=== PATIENT | female | born 1995 | race Caucasian/White ===

== ENCOUNTER 2018-03-26 23:43 | Emergency (ER) | payer MEDICAID ==
[2018-03-27] MEDS: HYDROCODONE/APAP (10/325) TAB PO (00:31)
[2018-03-27] MEDS: ONDANSETRON (ODT) 4 MG TAB ODT (00:31)
[2018-03-27] MEDS: DIPHTH/TET/ACEL PERTUSS (ADULT) 0.5 ML VIAL IM* (00:32)
[2018-03-27] MEDS: LIDOCAINE 1%/EPI 30 ML INJ INJ (01:15)
== END 2018-03-27 02:40 | disposition home or self-care (01) ==
LOC: E/R 23:43
DX: S61.411A Laceration without foreign body of right hand, initial encounter (principal); S61.511A Laceration without foreign body of right wrist, initial encounter; S61.212A Laceration without foreign body of right middle finger without damage to nail, initial encounter; R40.2142 Coma scale, eyes open, spontaneous, at arrival to emergency department; R40.2252 Coma scale, best verbal response, oriented, at arrival to emergency department; R40.2362 Coma scale, best motor response, obeys commands, at arrival to emergency department; W25.XXXA Contact with sharp glass, initial encounter; Y92.9 Unspecified place or not applicable; Z23 Encounter for immunization
CPT/HCPCS: 12004; 73130-RT; 90471; 90715; 99283-25

== ENCOUNTER 2018-04-08 19:10 | Emergency (ER) | payer MEDICAID | END 2018-04-08 20:40 | disposition home or self-care (01) | LOC: FTE 19:10 | DX: Z48.02 Encounter for removal of sutures (principal) | CPT/HCPCS: 99281; Z7502 ==